=== PATIENT | female | born 1965 | race Caucasian/White ===

== ENCOUNTER 2017-03-24 12:11 | Emergency (ER) | payer SELFPAY ==
[~2017-03-24] VITALS: Ht 177.8 cm; Wt 96.6 kg
[2017-03-24] MEDS ORDERED: METF500T4 PO (12:50)
[2017-03-24] MEDS ORDERED: FLUT1DIS26 INH (12:50)
--- NOTE | 2017-03-24 15:17 | ED General ---
General Chief Complaint: General Problems/Pain Stated Complaint: HANDS AND ANKLES SWELLING Nursing Triage Note: Pt reports bilat hand swelling and bilat ankle swelling over past couple days. Pt reports she started a new job approx 1 wk ago that requires her to work with her hands a lot and be on her feet a lot. Nursing Sepsis Screen: No Definite Risk Source of Information: Patient, Family (daughter) Exam Limitations: No Limitations History of Present Illness Time Seen by Provider: 15:17 Initial Comments 52-year-old female patient presents to the emergency department with complaints of bilateral foot/ankle swelling and bilateral hand swelling. Patient states she started a new job approximately one week ago which requires repetitive and falling boxes and standing for long periods of time. Patient denies wearing any support socks or stockings. Patient does eat a lot of processed foods, fast foods, and drinks soda. Patient states she lives and works in [place], [place]. States they came over here "to check it out" because they were thinking about moving over here. Timing/Duration: 1 Week Modifying Factors: improves with Other (worse with standing for long periods of time. Improved in the morning.) Allergies and Home Medications Allergies Coded Allergies: Sulfa (Sulfonamide Antibiotics) (Unverified Allergy, Unknown, 03/24/17) meperidine (Unverified Allergy, Unknown, 03/24/17) "pass out" Home Medications Fluticasone/Salmeterol 1 Each Blst.w.dev, 1 PUFF INH BID, (Reported) Metformin HCl 500 Mg Tablet, 500 MG PO DAILY, (Reported) Constitutional: No chills, No diaphoresis, No dizziness, No fever, No weakness EENTM: no symptoms reported Respiratory: No cough, No dyspnea on exertion, No orthopnea, No short of breath Cardiovascular: see HPI, No chest pain, edema, No palpitations, No syncope Gastrointestinal: no symptoms reported Musculoskeletal: joint pain (bilateral foot pain and hand pain after swelling began.) Skin: No change in color, No lesions, No pruritus, No rash Psychiatric/Neurological: Denies Headache, Denies Numbness, Denies Paresthesia , Denies Tingling, Denies Weakness All Other Systems Reviewed Negative Unless Noted: Yes (Negative excepted noted.) Past Wrobvsa-Gdknpo-Uvgwpg Hx Patient Social History Recent Foreign Travel: No Contact w/Someone Who Travel: No Recent Infectious Disease Expo: No Physical Exam Vital Signs Vital Sign - Last 12Hours 03/24/17 12:46 Temp 98.3 Pulse 88 Resp 18 B/P (MAP) 113/68 Pulse Ox 97 O2 Delivery Room Air Capillary Refill : Less Than 3 Seconds Progress/Results/Core Measures Suspected Sepsis Recent Fever Within 48 Hours: No Infection Criteria Present: None New/Unexplained Altered Menta: No Sepsis Screen: No Definite Risk Sepsis Diagnosis: SIRS Temperature:98.3 Pulse: 88 Respiratory Rate: 18 Blood Pressure 113 /68 Mean: 83 Results/Orders Vital Signs/I&O Vital Sign - Last 12Hours 03/24/17 12:46 Temp 98.3 Pulse 88 Resp 18 B/P (MAP) 113/68 Pulse Ox 97 O2 Delivery Room Air Capillary Refill : Less Than 3 Seconds Blood Pressure Mean: 83 Departure Impression Impression: Primary Impression: Pedal edema Disposition: 01 HOME, SELF-CARE Condition: Improved Departure-Patient Inst. Decision time for Depature: 15:31 Referrals: NO,LOCAL PHYSICIAN (PCP) Primary Care Physician Patient Instructions: Swelling Add. Discharge Instructions: All discharge instructions reviewed with patient and/or family. Voiced understanding. Medications as instructed. Continue usual home medications. Elevate the bilateral lower extremities. Decrease the amount of salt in your diet. Wear support socks or DANILO hose throughout the day. Remove at bedtime. Follow-up with your family practitioner for recheck as outpatient. Return to the emergency department for worsened symptoms or any other concerns. Scripts Potassium Chloride (Potassium Chloride) 10 Meq Tablet.er 10 MEQ PO DAILY for 3 Days, #3 TAB 0 Refills Prov: MIRIAM DA SILVA 03/24/17 Furosemide (Lasix) 20 Mg Tablet 20 MG PO DAILY, #3 TAB 0 Refills 1 po daily x3d Prov: MIRIAM DA SILVA 03/24/17 Work/School Note: Work Release Form Date Seen in the Emergency Department: Mar 24, 2017 Return to Work: Mar 25, 2017 Restrictions: No Restrictions MIRIAM DA SILVA Mar 24, 2017 15:17
[2017-03-24] MEDS ORDERED: FUROSEMIDE 40 MG (LASIX) TAB PO ONE (15:30)
[2017-03-24] MEDS ORDERED: POTA10TA10 PO (15:33)
[2017-03-24] MEDS ORDERED: FURO-125 PO (15:33)
[2017-03-24 16:07] VITALS: BP 113/68
== END 2017-03-24 16:07 | disposition home or self-care (01) ==
LOC: ER 12:15
DX: R60.0 Localized edema (principal); Z79.84 Long term (current) use of oral hypoglycemic drugs
CPT/HCPCS: 99283